=== PATIENT | female | born 1955 | race African-American/Black ===

== ENCOUNTER 2018-09-12 09:09 | Day surgery (SDC) | payer OTHER ==
--- NOTE | 2018-09-11 15:05 | EKG ---
Test Date: 2018-09-11 Test Time: 14:48:21 Housing Management Officer: CHEY MEASUREMENT RESULTS: Intervals: Rate: 71 NV: 166 QRSD: 70 QT: 378 QTc: 410 [place]: P: 72 NV: 166 QRS: 49 T: 44 INTERPRETIVE STATEMENTS: Normal sinus rhythm Normal ECG Compared to ECG 12/25/2016 12:28:48 No significant changes Electronically Signed On 09-11-18 15:05:18 CDT by Isaac Garcia
--- NOTE | 2018-09-11 15:16 | RAD REPORT ---
EXAM DESCRIPTION: RAD - Chest Pa And Lat (2 Views) - 09/11/2018 3:10 pm CLINICAL HISTORY: preop Chest pain. COMPARISON: Chest Pa And Lat (2 Views) dated 12/25/2016; CHEST PA AND LAT 2 VIEW dated 09/10/2013; CH EST PA AND LAT 2 VIEW dated 03/12/2012; CHEST PA AND LAT 2 VIEW dated 11/17/2008 FINDINGS: The lungs are clear. The heart is normal in size. No displaced fractures. IMPRESSION: No acute or concerning finding suspected.
[2018-09-11 16:15] LABS: Absolute Lymphocytes (CBC) 4.2 K/uL (0.7-4.9); Basophils % 0.7 % (0-1.3); Eosinophils % 2.2 % (0-4.4); Hematocrit 42.1 % (36.0-45.0); Lymphocytes % 51.3 % (15.3-44.8); MPV 9.7 fL (7.6-11.3); Monocytes % 8.3 % (3.3-12.3); RBC Red Blood Cell Count 4.78 M/uL (3.86-4.86)
[2018-09-11 16:31] LABS: Potassium 4.2 mmol/L (3.5-5.1)
[2018-09-11 16:45] LABS: Blood Morphology Comment NOT SEEN (NOT SEEN); Platelet Estimate ADEQ
[2018-09-12] MEDS ORDERED: NA CHLORIDE 0.9% 1,000 ML ONE ×2 (10:32→15:09)
[2018-09-12] MEDS ORDERED: BUPIVACAINE 0.5% PF 10 ML VIAL ONE (10:53)
[2018-09-12] MEDS ORDERED: CEFAZOLIN/SWI 1gm 1 GM/10 ML SYR ONE (11:08)
[2018-09-12] MEDS ORDERED: PROPOFOL 200 MG/20 ML VIAL IV ONE (11:20)
[2018-09-12] MEDS ORDERED: FENTANYL CITR 100 MCG/2 ML ONE (11:20)
[2018-09-12] MEDS ORDERED: LIDOCAINE 1% MPF 5 ML VIAL ONE (11:21)
[2018-09-12] MEDS ORDERED: ROCURONIUM 50 MG/5 ML VIAL IV ONE (11:21)
[2018-09-12] MEDS ORDERED: MIDAZOLAM HCL 2 MG/2 ML INJ ONE (11:21)
[2018-09-12] MEDS ORDERED: GLYCOPYRROLATE 0.2 MG/ML SYR ONE (12:33)
[2018-09-12] MEDS ORDERED: KETOROLAC 30 MG/ML INJ ONE (12:33)
[2018-09-12] MEDS ORDERED: ONDANSETRON 4 MG/2 ML VIAL ONE ×2 (12:40→13:13)
[2018-09-12] MEDS ORDERED: NEOSTIGMINE 1 MG/ML -10 ML VIAL ONE (12:40)
[2018-09-12] MEDS ORDERED: Mastisol Adhesive Liq ONE (12:44)
[2018-09-12] MEDS: HYDROMORPHONE HCL 2 MG/ML inj ONE ×4 (12:49→13:40)
--- NOTE | 2018-09-12 13:37 | P.BOP ---
Preoperative diagnosis: incisional umbilical hernia, bilateral inguinal hernia Postoperative diagnosis: same Primary procedure: 1. Laparoscopic repair tender right inguinal hernia with mesh Secondary procedure: 2. Laparoscopic repair left tender inguinal hernia with mesh Other procedure(s): 3. Open repair of incisional umbilical hernia Ethanol Operator: Adela Matamoros) Estimated blood loss: <10cc Specimen: none Findings: as above, Pt found to have a left and right ingunal hernia and umbilical h Anesthesia: General Complications: None Implants: 3d mesh R and L Transferred to: Recovery Room Condition: Good
[2018-09-12] MEDS ORDERED: CODEINE 30MG/APAP 300MG TAB ONE (14:22)
--- NOTE | 2018-09-14 02:24 | OP ---
Date of Procedure: 09/12/2018 Surgeon: Harish Vanessa MD Pigment Supplier: GABBY Avila. Preoperative Diagnosis: Incisional umbilical hernia and bilateral tender inguinal hernias. Postoperative Diagnoses: Incisional umbilical hernia and bilateral tender inguinal hernias. Procedures: 1.Laparoscopic repair of a tender right inguinal hernia with mesh. 2.Laparoscopic repair of left inguinal hernia with mesh. 3.Open repair of an incisional umbilical hernia. Specimen: None. Findings: As above. Anesthesia: General plus local. Implant: A 3D mesh, right and left. Indications: This is the case of a female who comes to us with multiple hernias; all of them tender. First, we found the left side in the umbilical area, and then under workup in the last few weeks, s he did have tenderness in the right thigh and when we checked in that area, we noticed the patient to have a right inguinal hernia. Patient wants all of them to fix at the same time. Benefits and risk s of repair of laparoscopic bilateral inguinal hernias and also incisional umbilical hernia with poss ible mesh fully explained to the patient, which include but are not limited to infection, bleeding, d amage to adjacent structures, mesh complications, recurrence, chronic numbness, chronic pain, CT, and even . She also understands this might not relieve any symptoms. She might need more than one surgical intervention. She was explained the intention to use mesh in that place. Pros and cons of mesh placement were explained to the patient and details about it. Patient was allowed to ask quest ions and they were answered to satisfaction. Then after being informed, she did allow me to use mesh . The areas of concern were marked by me with the patient in the holding room. Description Of Procedure: The patient was brought to the operating room, placed in supine position. Anesthesia was done without complication. Abdominal and inguinal region were prepped and draped in sterile fashion. Local anesthetic was applied over the infraumbilical region. Incision was carried down to fascia, until we find the anterior rectus sheath that was opened and then muscle retracted la terally to expose the posterior rectus sheath. The extraperitoneal space was developed with the use of blunt dissection and also a balloon space maker trocar was placed and directed towards the pubic s ymphysis. The scope was placed over the area. The balloon was inflated to create the extraperitonea l space under direct visualization. The balloon was removed. We inflated the area and then we place d a 5 mm trocar just in the area above the pubic symphysis and another one correction between the first and the second one. The preperitoneal space was further developed by exposing the inferior epigastri c vessels on the left side, keeping them anterior to the working space. The Taj ligament was diss ected laterally to a junction with the iliac veins. Dissection continued inferiorly to the iliopubic tract, avoiding damage to the femoral branch of the genitofemoral nerve and lateral femoral cutaneou s nerve. We identified a hernia sac. So, we carefully removed the hernia sac and retracted back int o the peritoneal space. Direct and indirect spaces were visualized. There was no hernia sac anymore in those areas. At that moment, we directed our attention to the right side; once again, the patien t suspected she also has a hernia in that region. So, we proceeded to do the same as the other one. We identified the hernia sac. After doing the same technique as the opposite side, and retracted th e hernia sac into the peritoneal space. At that moment, I proceeded to carefully roll, first in the left side, a mesh 3D, placed on the working space and secured in place to cover direct indirect space s, lateral and superior to the iliopubic tract and inferior and medial to the Taj ligament. The s ajay mesh for the left side was placed there and then other one for the right side, a right mesh was p laced in the right side, once again orienting that properly to cover the same spaces and secured in p lace on the right side also, in the lateral and superior to the iliopubic tract, and inferior and med ial to the Taj ligament. Hemostasis was ensured. We sprayed the area with local anesthetic. The n while securing the mesh in place and making sure the hernia sacs were still retracted, we proceeded to deflate the area under direct visualization. We removed the 5 mm trocars out of that area, close d the anterior rectus sheath, and then directed our attention to the umbilical region. The patient h ad the previous incision of an incisional hernia. So carefully, we identified the area, removed the scar tissue, found the hernia sac in the umbilical region, trimmed the fascia edges, and secured the area with Vicryl #1 in a [id number] fashion. The skin incisions were approximated after closing the subcutaneous tissue with 2-0 chromic first. The patient tolerated the procedure well. The gómez ent was sent to recovery room in stable condition. Disposition: Home. Activity: As tolerated. No heavy lifting. Followup: Follow up in my office in 1 week. Call for appointment on [phone]. Keep the area dry fo r 48 hours, then may shower. Medications: See orders. BELLO/SHANIQUE Voice ID: [id number] Report ID: [id number]
== END 2018-09-12 15:06 | disposition home or self-care (01) ==
LOC: OR 09:09
PROVIDERS: ATTEND Surgery
PROC: 0YUA4JZ Supplement Bilateral Inguinal Region with Synthetic Substitute, Percutaneous Endoscopic Approach (ICD-10-PCS; principal; 2018-09-12 11:15)
PROC: 0WQF0ZZ Repair Abdominal Wall, Open Approach (ICD-10-PCS; 2018-09-12 11:15)
DX: K40.20 Bilateral inguinal hernia, without obstruction or gangrene, not specified as recurrent (principal); K42.9 Umbilical hernia without obstruction or gangrene; E11.9 Type 2 diabetes mellitus without complications; I10 Essential (primary) hypertension
CPT/HCPCS: 49650; 49585; 93005; 85025; 80048; 36415; 82962 ×2; 88302; 71046; J2704; J2710; J2250; J1170; J3010; J0690; J7030 ×2; J2405 ×2